=== PATIENT | male | born 1995 | race Caucasian/White ===

== ENCOUNTER 2022-11-15 09:17 | Emergency (ER) | payer OTHER ==
[~2022-11-15] VITALS: Ht 175.3 cm; Wt 74.8 kg
[2022-11-15 09:36] VITALS: BP 131/81
== END 2022-11-15 09:55 | disposition home or self-care (01) ==
LOC: ER 09:17
DX: S46.011A Strain of muscle(s) and tendon(s) of the rotator cuff of right shoulder, initial encounter (principal); X50.0XXA Overexertion from strenuous movement or load, initial encounter
CPT/HCPCS: 99283